=== PATIENT | female | born 1975 | race Two or more races ===

== ENCOUNTER 2016-11-13 12:12 | Emergency (ER) | payer MEDICAID, OTHER ==
[~2016-11-13] VITALS: Ht 170.2 cm; Wt 103.0 kg
[~2016-11-13 12:12] MED LIST: FAMOTIDINE
[2016-11-13] MEDS ORDERED: ONDANSETRON HCL 4MG/2ML VIAL IV STA (12:31)
[2016-11-13] MEDS ORDERED: SODIUM CHLORIDE 0.9% 1,000 ML IV ONE (12:31)
[2016-11-13] MEDS ORDERED: KETOROLAC 30MG/ML VIAL IV ONE (12:45)
[2016-11-13 12:57] LABS: PARTIAL THROMBOPLASTIN TIME 26.1 sec (24.0-34.0); PROTHROMBIN TIME 10.1 sec
[2016-11-13 12:59] LABS: BASOPHILS % 0.6 % (0.0-2.0); EOSINOPHILS % 1.7 % (0.0-5.0); HEMATOCRIT. 39.9 % (36.0-48.0); HEMOGLOBIN. 13.5 g/dL (12.0-16.0); LYMPHOCYTES % 23.1 % (20.0-50.0); MEAN CORPUSCULAR HEMOGLOBIN 30.4 pg (28.0-32.0); MEAN CORPUSCULAR VOLUME 89.8 fL (81.0-99.0); MEAN PLATELET VOLUME 8.5 fl (7.4-10.4); MONOCYTES % 10.1 % (2.0-8.0); NEUTROPHILS % 64.5 % (40.0-76.0); PLATELET 281 x1000/uL (130-400); RED BLOOD CELL COUNT 4.44 mill/uL (4.2-5.4); RED CELL DISTRIBUTION WIDTH 13.4 % (11.6-14.6)
[2016-11-13 13:05] LABS: CARBON DIOXIDE 30 mEq/L (21-32); CHLORIDE 105 mEq/L (98-107); CREATINE KINASE 36 IU/L (26-192); TROPONIN I < 0.02 ng/mL (0.00-0.04)
[2016-11-13 13:08] LABS: CREATINE KINASE MB FRACTION < 0.5 ng/mL (0.5-3.6)
[2016-11-13 13:29] LABS: HCG SCREEN NEGATIVE
[2016-11-13] MEDS ORDERED: POTASSIUM CHLORIDE 20MEQ TABLET SR PO ONE (14:45)
[2016-11-13 15:15] VITALS: BP 141/103
== END 2016-11-13 15:19 | disposition home or self-care (01) ==
LOC: ER 12:12
DX: F41.9 Anxiety disorder, unspecified (principal); R03.0 Elevated blood-pressure reading, without diagnosis of hypertension; E87.6 Hypokalemia; F17.200 Nicotine dependence, unspecified, uncomplicated; Z88.5 Allergy status to narcotic agent
CPT/HCPCS: 36415; 71010; 80053; 82550; 82553; 83690; 83880; 84443; 84484; 84703; 85025; 85610; 85730; 93005; 96361; 96374; 96375; 99285; J1885; J2405; J7030; Z7610

== ENCOUNTER 2017-11-07 18:07 | Emergency (ER) | payer SELFPAY ==
[~2017-11-07] VITALS: Ht 167.6 cm; Wt 109.0 kg
[2017-11-08] MEDS ORDERED: ACETAMINOPHEN 325MG TABLET PO ONE (00:45)
[2017-11-08 01:47] LABS: BASOPHILS % 0.6 % (0.0-2.0); HEMATOCRIT. 36.9 % (36.0-48.0); HEMOGLOBIN. 12.3 g/dL (12.0-16.0); LYMPHOCYTES % 25.6 % (20.0-50.0); MEAN CORPUSCULAR HEMOGLOBIN 29.2 pg (28.0-32.0); MEAN CORPUSCULAR VOLUME 87.6 fL (81.0-99.0); MEAN PLATELET VOLUME 8.2 fl (7.4-10.4); MONOCYTES % 7.8 % (2.0-8.0); PLATELET 270 x1000/uL (130-400); RED BLOOD CELL COUNT 4.21 mill/uL (4.2-5.4); RED CELL DISTRIBUTION WIDTH 13.4 % (11.6-14.6)
[2017-11-08 01:53] LABS: CHLORIDE 105 mEq/L (98-107)
[2017-11-08 01:54] LABS: PROTHROMBIN TIME 10.4 sec (9.4-11.6)
[2017-11-08 02:57] LABS: CLARITY URINE CLOUDY (CLEAR); COLOR URINE YELLOW (YELLOW); KETONES URINE NEGATIVE (NEGATIVE); LEUKOCYTE ESTERASE URINE NEGATIVE (NEGATIVE); NITRITE URINE NEGATIVE (NEGATIVE); OCCULT BLOOD URINE NEGATIVE (NEGATIVE); PROTEIN URINE NEGATIVE (NEGATIVE); UROBILINOGEN URINE 0.2 E.U./dL (0.2-1.0)
[2017-11-08 11:18] VITALS: BP 121/70
== END 2017-11-08 11:31 | disposition home or self-care (01) ==
LOC: ER 18:07
DX: M79.672 Pain in left foot (principal); M79.671 Pain in right foot; F41.9 Anxiety disorder, unspecified; Z88.6 Allergy status to analgesic agent; Z90.49 Acquired absence of other specified parts of digestive tract
CPT/HCPCS: 36415; 80053; 81003; 81025; 85025; 85610; 93970; 99285; Z7610

== ENCOUNTER 2017-11-15 21:14 | Emergency (ER) | payer SELFPAY ==
[~2017-11-15] VITALS: Ht 167.6 cm; Wt 110.0 kg
[2017-11-16] MEDS ORDERED: ACETAMINOPHEN 325MG TABLET PO STA (06:12)
[2017-11-16 06:39] LABS: BASOPHILS % 0.5 % (0.0-2.0); EOSINOPHILS % 2.5 % (0.0-5.0); HEMATOCRIT. 36.2 % (36.0-48.0); HEMOGLOBIN. 11.9 g/dL (12.0-16.0); LYMPHOCYTES % 25.8 % (20.0-50.0); MEAN CORPUSCULAR HEMOGLOBIN 29.1 pg (28.0-32.0); MEAN CORPUSCULAR VOLUME 88.3 fL (81.0-99.0); MEAN PLATELET VOLUME 8.3 fl (7.4-10.4); MONOCYTES % 8.7 % (2.0-8.0); NEUTROPHILS % 62.5 % (40.0-76.0); PLATELET 284 x1000/uL (130-400); RED CELL DISTRIBUTION WIDTH 13.9 % (11.6-14.6)
[2017-11-16 06:45] LABS: CHLORIDE 106 mEq/L (98-107)
[2017-11-16 07:12] LABS: CLARITY URINE TURBID (CLEAR); COLOR URINE RED (YELLOW); KETONES URINE NEGATIVE (NEGATIVE); LEUKOCYTE ESTERASE URINE 2+ (NEGATIVE); NITRITE URINE POSITIVE (NEGATIVE); OCCULT BLOOD URINE 2+ (NEGATIVE); PROTEIN URINE 2+ (NEGATIVE); SPECIFIC GRAVITY URINE 1.023 (1.005-1.030); UROBILINOGEN URINE 0.2 E.U./dL (0.2-1.0)
[2017-11-16 07:16] LABS: HCG SCREEN NEGATIVE
[2017-11-16 08:33] LABS: *AMPHETAMINES SCREEN URINE NEGATIVE (NEGATIVE); *BARBITURATES SCREEN URINE NEGATIVE (NEGATIVE); *BENZODIAZEPINES SCREEN URINE NEGATIVE (NEGATIVE); *COCAINE SCREEN URINE NEGATIVE (NEGATIVE); METHADONE URINE SCREEN NEGATIVE (NEGATIVE); OPIATES URINE SCREEN NEGATIVE (NEGATIVE)
[2017-11-16 08:34] LABS: CANNABINOID URINE SCREEN NEGATIVE (NEGATIVE); PHENCYCLIDINE URINE SCREEN NEGATIVE (NEGATIVE)
[2017-11-16 09:02] VITALS: BP 132/78
== END 2017-11-16 10:07 | disposition home or self-care (01) ==
LOC: ER 21:14
DX: R51 Headache (principal); N39.0 Urinary tract infection, site not specified; F41.9 Anxiety disorder, unspecified; Z90.49 Acquired absence of other specified parts of digestive tract
CPT/HCPCS: 36415; 80053; 80305; 81003; 84703; 85025; 87086; 99284; Z7610

== ENCOUNTER 2018-07-24 23:45 | Emergency (ER) | payer MEDICAID ==
[~2018-07-24] VITALS: Ht 170.2 cm; Wt 109.0 kg
[2018-07-25] MEDS ORDERED: SODIUM CHLORIDE 0.9% 1,000 ML IV ONE (03:57)
[2018-07-25] MEDS ORDERED: KETOROLAC 30MG/ML VIAL IV STA (03:57)
[2018-07-25] MEDS ORDERED: ONDANSETRON HCL 4MG/2ML INJ IV STA (03:57)
[2018-07-25 04:17] LABS: CHLORIDE 108 mEq/L (98-107)
[2018-07-25 04:18] LABS: BASOPHILS % 0.9 % (0.0-2.0); EOSINOPHILS % 2.9 % (0.0-5.0); HEMATOCRIT. 38.5 % (36.0-48.0); HEMOGLOBIN. 12.8 g/dL (12.0-16.0); LYMPHOCYTES % 22.4 % (20.0-50.0); MEAN CORPUSCULAR HEMOGLOBIN 29.8 pg (28.0-32.0); MEAN CORPUSCULAR VOLUME 89.7 fL (81.0-99.0); MONOCYTES % 8.8 % (2.0-8.0); PLATELET 304 x1000/uL (130-400); RED CELL DISTRIBUTION WIDTH 13.6 % (11.6-14.6)
[2018-07-25 06:13] VITALS: BP 116/88
== END 2018-07-25 06:39 | disposition home or self-care (01) ==
LOC: ER 23:45
DX: K43.9 Ventral hernia without obstruction or gangrene (principal); Z90.49 Acquired absence of other specified parts of digestive tract; Z88.5 Allergy status to narcotic agent; Z79.899 Other long term (current) drug therapy
CPT/HCPCS: 36415; 74176; 80053; 81025; 83690; 85025; 96374; 96375; 99284; J1885; J2405; J7030

== ENCOUNTER 2020-03-05 12:21 | Observation (INO) | payer MEDICAID ==
[~2020-03-05 12:21] MED LIST changes: -FAMOTIDINE; +PNV1TABL76 MT
[2020-03-05] MEDS ORDERED: LACTATED RINGERS 1,000 ML IV SCH (13:30)
[2020-03-05 13:48] LABS: CLARITY URINE CLOUDY (CLEAR); COLOR URINE YELLOW (YELLOW); KETONES URINE NEGATIVE (NEGATIVE); LEUKOCYTE ESTERASE URINE 2+ (NEGATIVE); NITRITE URINE NEGATIVE (NEGATIVE); OCCULT BLOOD URINE NEGATIVE (NEGATIVE); PH URINE 7.5 (4.5-8.0); PROTEIN URINE TRACE (NEGATIVE); SPECIFIC GRAVITY URINE 1.019 (1.005-1.030)
== END 2020-03-05 15:00 | disposition home or self-care (01) ==
LOC: 8 EST LDRP 12:21
PROVIDERS: ADMIT Obstetrics & Gynecology; ATTEND Obstetrics & Gynecology
DX: O26.893 Other specified pregnancy related conditions, third trimester (principal); R10.2 Pelvic and perineal pain; Z3A.33 33 weeks gestation of pregnancy
CPT/HCPCS: 59025; 81003; G0378; 99281

== ENCOUNTER 2020-03-14 08:07 | Observation (INO) | payer MEDICAID ==
[~2020-03-14] VITALS: Ht 170.2 cm; Wt 104.3 kg
[2020-03-14] MEDS: TERBUTALINE SULFATE 1MG/ML VIAL SUBCUT NR ×3 (09:27→11:19)
[2020-03-14] MEDS: LACTATED RINGERS 1,000 ML IV SCH ×2 (09:28→13:17)
[2020-03-14 09:53] LABS: CLARITY URINE CLEAR (CLEAR); COLOR URINE YELLOW (YELLOW); KETONES URINE NEGATIVE (NEGATIVE); LEUKOCYTE ESTERASE URINE NEGATIVE (NEGATIVE); NITRITE URINE NEGATIVE (NEGATIVE); OCCULT BLOOD URINE NEGATIVE (NEGATIVE); PROTEIN URINE NEGATIVE (NEGATIVE); SPECIFIC GRAVITY URINE 1.013 (1.005-1.030)
[2020-03-14] MEDS ORDERED: TERBUTALINE SULFATE 1MG/ML VIAL SUBCUT PRN (10:45)
[2020-03-14] MEDS ORDERED: MAGNESIUM 4 G PREMIX 100 ML IV NR (12:30)
[2020-03-14] MEDS: MAGNESIUM 20 G PREMIX (L & D) 500 ML IV SCH ×2 (13:16→22:53)
[2020-03-14] MEDS ORDERED: BUTORPHANOL TARTRATE 2 MG/ML VIAL IV PRN (14:45)
[2020-03-14] MEDS ORDERED: METHYLERGONOVINE MALEATE 0.2 MG/ML IM PRN (14:45)
[2020-03-14] MEDS ORDERED: DEXT 5%/LR + PITOCIN 20UNITS/L 1,000 ML IV SCH (14:45)
[2020-03-14] MEDS ORDERED: CARBOPROST TROMETHAMINE 250 MCG/ML AMPUL IM PRN (14:45)
[2020-03-14] MEDS ORDERED: LIDOCAINE HCL 1% 20ML VIAL (Pyxis) INJ INFIL SCH (14:45)
[2020-03-14] MEDS ORDERED: ACETAMINOPHEN 500MG TABLET PO SCH (15:00)
[2020-03-14 15:28] LABS: BASOPHILS % 0.3 % (0.0-2.0); EOSINOPHILS % 0.4 % (0.0-5.0); HEMATOCRIT. 32.3 % (36.0-48.0); HEMOGLOBIN. 10.8 g/dL (12.0-16.0); LYMPHOCYTES % 12.7 % (20.0-50.0); MEAN CORPUSCULAR HEMOGLOBIN 28.9 pg (28.0-32.0); MEAN CORPUSCULAR VOLUME 86.2 fL (81.0-99.0); MEAN PLATELET VOLUME 8.4 fl (7.4-10.4); NEUTROPHILS % 78.6 % (40.0-76.0); PLATELET 286 x1000/uL (130-400); RED BLOOD CELL COUNT 3.75 mill/uL (4.2-5.4); RED CELL DISTRIBUTION WIDTH 13.7 % (11.6-14.6)
[2020-03-14] MEDS ORDERED: PENICILLIN G POTASSIUM 5 MMU in DEXT 5% WATER 100 ML IV NR (15:30)
[2020-03-14 15:31] LABS: CHLORIDE 105 mEq/L (98-107)
[2020-03-14 15:40] LABS: INR 0.9; PARTIAL THROMBOPLASTIN TIME 26.4 sec (23.4-31.0); PROTHROMBIN TIME 9.5 sec (9.6-11.0)
[2020-03-14 15:48] LABS: CANNABINOID URINE SCREEN NEGATIVE (NEGATIVE); OPIATES URINE SCREEN NEGATIVE (NEGATIVE); PHENCYCLIDINE URINE SCREEN NEGATIVE (NEGATIVE)
[2020-03-14 15:49] LABS: *BARBITURATES SCREEN URINE NEGATIVE (NEGATIVE)
[2020-03-14 15:50] LABS: *AMPHETAMINES SCREEN URINE NEGATIVE (NEGATIVE)
[2020-03-14 15:53] LABS: *COCAINE SCREEN URINE NEGATIVE (NEGATIVE); METHADONE URINE SCREEN NEGATIVE (NEGATIVE)
[2020-03-14 15:57] LABS: *BENZODIAZEPINES SCREEN URINE NEGATIVE (NEGATIVE)
[2020-03-14 15:58] LABS: HEPATITIS B SURFACE ANTIGEN NEGATIVE
[2020-03-14] MEDS ORDERED: BISACODYL 10MG SUPP PR NR (19:45)
[2020-03-14] MEDS: PENICILLIN G POTASSIUM 2.5 MMU in DEXTROSE 5% WATER 50 ML IV SCH (20:00)
[2020-03-14] MEDS ORDERED: KETOROLAC 30MG/ML VIAL IV NR (22:00)
[2020-03-15] MEDS: PENICILLIN G POTASSIUM 2.5 MMU in DEXTROSE 5% WATER 50 ML IV SCH ×4 (00:07→13:56)
[2020-03-15] MEDS: LACTATED RINGERS 1,000 ML IV SCH (01:33)
[2020-03-15 09:35] VITALS: BP 130/77
[2020-03-15] MEDS: MAGNESIUM 20 G PREMIX (L & D) 500 ML IV SCH (09:35)
== END 2020-03-15 18:00 | disposition home or self-care (01) ==
LOC: 8 EST LDRP 08:07
PROVIDERS: ADMIT Obstetrics & Gynecology; ATTEND Obstetrics & Gynecology
DX: O60.03 Preterm labor without delivery, third trimester (principal); O09.523 Supervision of elderly multigravida, third trimester; O99.013 Anemia complicating pregnancy, third trimester; O09.33 Supervision of pregnancy with insufficient antenatal care, third trimester; Z3A.34 34 weeks gestation of pregnancy
CPT/HCPCS: 36415; 76805; 76818; 80053; 80305; 81003; 83735; 84550; 85025; 85384; 85610; 85730; 86592; 86762; 86850; 86900; 86901; 87340; 96361; 96365; 96366; 96367; 96368; 96372; 96375; G0378; J1885; J2540; J3105; J3475; J7060; J7120; 59412; 96360; A4315

== ENCOUNTER 2020-04-01 12:33 | Observation (INO) | payer MEDICAID | END 2020-04-01 15:00 | disposition home or self-care (01) | LOC: 8 EST LDRP 12:33 | PROVIDERS: ADMIT Obstetrics & Gynecology; ATTEND Obstetrics & Gynecology | DX: O61.9 Failed induction of labor, unspecified (principal); Z3A.38 38 weeks gestation of pregnancy | CPT/HCPCS: 59025; G0378; 99281 ==

== ENCOUNTER 2020-04-08 13:17 | Observation (INO) | payer MEDICAID ==
[~2020-04-08] VITALS: Ht 167.6 cm; Wt 106.6 kg
== END 2020-04-08 14:35 | disposition home or self-care (01) ==
LOC: 8 EST LDRP 13:17
PROVIDERS: ADMIT Obstetrics & Gynecology; ATTEND Obstetrics & Gynecology
DX: O99.891 Other specified diseases and conditions complicating pregnancy (principal); R11.0 Nausea; Z3A.37 37 weeks gestation of pregnancy
CPT/HCPCS: 59025; G0378; 99281

== ENCOUNTER 2021-04-28 18:09 | Emergency (ER) | payer MEDICARE ==
[~2021-04-28] VITALS: Ht 177.8 cm; Wt 92.0 kg
[2021-04-28 19:04] VITALS: BP 148/66
[2021-04-28] MEDS ORDERED: IBUP-2029 MT (20:53)
== END 2021-04-28 22:06 | disposition home or self-care (01) ==
LOC: ER 18:09
DX: U07.1 COVID-19 (principal); B34.9 Viral infection, unspecified; F17.290 Nicotine dependence, other tobacco product, uncomplicated; Z90.49 Acquired absence of other specified parts of digestive tract; Z98.890 Other specified postprocedural states; Z88.8 Allergy status to other drugs, medicaments and biological substances; Z79.899 Other long term (current) drug therapy
CPT/HCPCS: 99283; 99406; C9803; U0003; U0005